=== PATIENT | male | born 1950 | race Caucasian/White ===

== ENCOUNTER → 2017-10-07 | Outpatient (CLI) | payer BC ==
[~2017-10-07] MED LIST: ASPI81TA28 PO; AZEL0.15 NAE; CHOL1000 PO; LEVO50TA PO; MULTTAB58 PO; PANT40TA PO; RANI150T85 PO; SIMV20TA2 PO; VGR50 PO
== END | disposition home or self-care (01) ==
LOC: C.RDSM 07:57
PROVIDERS: ATTEND Family Medicine Sports Medicine
DX: M54.5 Low back pain (principal)

== ENCOUNTER 2022-11-02 11:53 | Observation (INO) ==
[2022-11-02] MEDS ORDERED: SODIUM CHLORIDE 0.9% 500 ML IV ONE (13:11)
--- NOTE | 2022-11-02 13:15 | Emergency Department Note ---
Impression & Plan Ataxia, Balance problem ED Provider Note Name: MATTHEW GRANT Age: 72 Sex: M Arrives Via: Walk-In Informant: Patient, ED Provider: Brock Matos MD Chief Complaint: Unstable gait Impression: As per impressions above Medical Decision Making: Pleasant relatively healthy 72-year-old gentleman who does have a history of hypertension, dyslipidemia hypothyroidism and GERD arrives for evaluation of inability to walk in a straight line which has been coming and going throughout the last day. No active symptoms on evaluation with NIH of 0. No indication for acute stroke alert nor would he be candidate for TNKase. Patient with no posterior stroke findings on initial evaluation. A CT of the head and neck with angio reveals no acute findings. Laboratory work-up is benign. He is mildly hypertensive on arrival. In this setting I am somewhat concerned that he may have had a posterior stroke and should have further work-up as an inpatient. He does not have any true vertiginous symptoms and is not having spinning. His exam reveals no evidence of of middle ear effusion though does have a moderate cerumen impaction of the right ear. Hospitalist was consulted for further management Prior Medical Record and Triage/Nursing Notes reviewed by Me External chart reviewed by me Differentials:Stroke, vertigo, effusion, intracranial mass, dissection, electrolyte imbalance, dehydration, infection amongst many other pathologies considered Vital Signs: reviewed and remarkable for hypertension Labs:Reviewed and remarkable for no significant abnormalities Imaging:CT of the head without contrast as per my informal interpretation no evidence of intracranial hemorrhage, mass effect or other concerning findings. CT angio of the head and neck as per radiologist no acute findings. EKG:As per my interpretation. Indication strokelike symptoms. Sinus bradycardia 59 bpm and a QTc of 407. There is no previous EKG for comparison. There is no ectopy nor ischemia Cardiac/Tele Monitoring: Cardiac Monitoring: An Order was placed for continuous cardiac monitoring. The monitor shows a rate of 60 with a normal sinus rhythm. Consults:Hospitalist Plan: Disposition:Hospitalization. Condition: Good History of Present Illness:72-year-old gentleman with a history of hypertension, dyslipidemia, hypothyroid, GERD arrives for evaluation of am bulatory dysfunction. Patient notes he was on his 3 mile walk which he typically takes each morning when he felt like he was kept veering towards the right. This eventually went away but then on getting home it happened again. Symptoms once again resolved. At that time he denies any specific weakness in his arms or legs visual changes spinning, headaches, neck pain, lightheadedness, palpitation, nausea, vomiting, paresthesias or any other concerning signs or symptoms. He just states he could not walk correctly. Since then he has been feeling fine. He has had no previous history of stroke or TIA. He takes an aspirin 81 mg every other day. No history of cardiac disease. Denies any falls or traumas. Patient denies any recent car accidents. He has been feeling well the last few weeks. The only thing he notes that is out of the ordinary as he was pretty stressed out last week due to trying to put in laminate howard. Past History:hypertension, dyslipidemia, hypothyroid, GERD Home Medications:See Below Allergies:Percocet Vitals:Blood Pressure: 190/91, Pulse 91, RR 18, T 36.7C, O2 98% on RA Physical Exam: GENERAL: Patient is well appearing and in no acute distress. EYES: No scleral icterus, unremarkable pupils. RESPIRATORY: No dyspnea. Clear to auscultation and equal bilaterally. No wheeze, no rhonchi. CARDIOVASCULAR: Regular rate and rhythm.No murmurs, rubs, gallops appreciated. EXTREMITIES: Normal motion all extremities, no cyanosis, no edema. NEUROLOGIC: Alert and oriented, no acute motor or sensory deficits, no focal wea kness, cranial nerves grossly intact. SKIN: No rash, no jaundice, no diaphoresis. PSYCH: Appropriate GCS: 15 ED Course: Times/Reassessments: Patient stable throughout no recurrence of symptoms he is agreeable to hospitalization for further work-up and evaluation Brock Matos MD Past Med/Surg History Medical History Anterior epistaxis GERD (gastroesophageal reflux disease) Hyperlipidemia Surgical History History of tonsillectomy and adenoidectomy Family History Other Family history non-contributory Social History Smoking Status: Never smoker Second Hand Exposure: No; Do You Dip or Chew Tobacco: No; Tobacco Cessation Education Requested by Patient: No Hx Alcohol Use: No Hx Substance Use: No Preferred Language: Nepali Communication Ability: Effective 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 Beliefs That Will Affect Care: None marital status: Current Living Situation: Spouse current occupational status: retired Other Information That Helps Us Care for You: No Feels Safe at Home: Yes Safety Concerns: Feels Safe At This Time Assistive Devices: None Allergies Allergies Allergy/AdvReac Type Severity Reaction Status Date / Time acetaminophen [From Percocet] AdvReac Severe Verified 11/02/22 15:42 nausea/possible vomiting oxycodone [From Percocet] AdvReac Severe Verified 11/02/22 15:42 nausea/possible vomiting Home Meds Home Medications Medication Instructions Recorded Confirmed atorvastatin 20 mg tablet 20 mg PO HS 09/15/18 11/02/22 cyanocobalamin (vitamin B-12) 0 mcg PO QAM 09/15/18 11/02/22 1,000 mcg tablet (Vitamin B-12) latanoprost 0.005 % eye drops 1 drp OPB HS 09/15/18 11/02/22 levothyroxine 75 mcg tablet 75 mcg PO QAM 09/15/18 11/02/22 acetaminophen 500 mg tablet 1,000 mg PO Q6H PRN Pain 08/31/21 11/02/22 (Tylenol Extra Strength) ibuprofen 200 mg tablet 400 mg PO Q6H PRN Pain 08/31/21 11/02/22 [place] Saline Nasal Gel 1 applic intranasal DAILY 11/02/22 11/02/22 Previous Rx's Medication Instructions Recorded omeprazole 20 mg capsule,delayed 20 mg PO BID #60 caps 08/08/21 release azelastine 137 mcg (0.1 %) nasal 1 spray intranasal BID PRN nasal 08/24/22 spray aerosol drainage /congestion #30 mL aspirin 81 mg tablet,delayed 81 mg PO DAILY #30 tabs 11/03/22 release atorvastatin 40 mg tablet 80 mg PO HS 30 days #60 tabs 11/03/22 Results & Data (ED) Vital Signs Vital Signs - 24 hr 11/02/22 11:58 Temperature 36.7 C Temperature Source Temporal Artery Scan Pulse Rate 91 H Respiratory Rate 18 Blood Pressure 190/91 H Blood Pressure Mean 124 Pulse Oximetry 98 Oxygen Delivery Method Room Air Sepsis Recent Fever Within 48 Hours No Sepsis New/Unexplained Change in Mental Status No Sepsis Action Taken by Nursing No Action Required Laboratory Data 11/03/22 05:53 11/03/22 05:53 Lab Results 11/02/22 11/02/22 11/02/22 Range/Units 13:01 13:01 13:01 WBC 7.09 (4.8-10.8) K/ul RBC 5.47 (4.70-6.10) M/uL Hgb 17.6 (14.0-18.0) g/dl POC Hgb (14.0-18.0) g/dl Hct 50.4 (42.0-52.0) % POC Hct (42-52) % MCV 92.1 (80.0-100.0) fL MCH 32.2 (25.0-34.0) pg MCHC 34.9 (32.0-36.0) g/dL RDW Std Deviation 44.7 (36.4-46.3) fL RDW Coeff of Nevaeh 13.1 (11.5-14.5) % Plt Count 219 (130-400) K/uL MPV 11.3 (9.4-12.4) fL Immature Gran % (Auto) 0.3 % Neut % (Auto) 72.1 % Lymph % (Auto) 18.5 % [place] % (Auto) 6.9 % Eos % (Auto) 1.6 % Baso % (Auto) 0.6 % Neut # (Auto) 5.12 (1.40-6.50) K/uL Lymph # (Auto) 1.31 (1.2-3.4) K/uL [place] # (Auto) 0.49 (0.11-0.59) K/uL Eos # (Auto) 0.11 (0-0.50) K/uL Baso # (Auto) 0.04 (0-0.2) K/uL Immature Gran # (Auto) 0.02 (0.01-0.20) K/uL POC Sodium (135-144) mmol/L Sodium 140 (136-145) mmol/L POC Potassium (3.3-5.0) mmol/L Potassium 4.1 (3.5-5.1) mmol/L POC Chloride (101-112) mmol/L Chloride 106 (98-107) mmol/L Carbon Dioxide 27 (21-32) mmol/L POC Total CO2 (24-31) mmol/L Anion Gap 7 (3-11) POC Anion Gap (16-25) mmol/L POC BUN (7-18) mg/dl BUN 15 (6-23) mg/dl Creatinine 1.17 (0.6-1.4) mg/dl POC Creatinine (0.6-1.3) mg/dl Est Cr Clr Drug Dosing 60.8 ml/min Est GFR ( Amer) 71.8 ml/min Est GFR (Non-Af Amer) 61.9 ml/min BUN/Creatinine Ratio 12.8 (10-20) Glucose 92 (70-99(Fasting)) mg/dl POC Glucose (other) (70-99) mg/dl Calcium 9.4 (8.6-10.3) mg/dl POC Ioniz Calcium Santhosh (1.12-1.32) mmol/l Magnesium 2.0 (1.7-2.4) mg/dl Total Bilirubin 1.1 H (0.2-1.0) mg/dl Direct Bilirubin 0.2 (0-0.2) mg/dl AST 23 (13-39) U/L ALT 26 (7-52) U/L Alkaline Phosphatase 78 (34-104) U/L Troponin I High Sens 4.1 (0-20) pg/ml Total Protein 8.2 (6.0-8.3) gm/dl Albumin 4.8 (3.4-5.0) gm/dl TSH 2.831 (0.300-4.500) uIu/ml Urine Color Urine Appearance (Clear) Urine pH (4.5-7.5) Ur Specific Jackson (1.000-1.030) Urine Protein (Negative) Urine Glucose (UA) (Negative) Urine Ketones (Negative) Urine Blood (Negative) Urine Nitrite (Negative) Urine Bilirubin (Negative) Urine Urobilinogen (Negative) Ur Leukocyte Esterase (Negative) Urine WBC (Auto) (0-5) /hpf Urine RBC (Auto) (0-4) /hpf U Hyaline Cast (Auto) (0-5) /lpf U Epithel Cells (Auto) (0-5) /lpf Urine Bacteria (Auto) (Negative) SARS-CoV-2, RNA, NAAT (NEGATIVE) 11/02/22 11/02/22 11/02/22 Range/Units 13:38 13:42 14:18 WBC (4.8-10.8) K/ul RBC (4.70-6.10) M/uL Hgb (14.0-18.0) g/dl POC Hgb 17.3 (14.0-18.0) g/dl Hct (42.0-52.0) % POC Hct 51 (42-52) % MCV (80.0-100.0) fL MCH (25.0-34.0) pg MCHC (32.0-36.0) g/dL RDW Std Deviation (36.4-46.3) fL RDW Coeff of Nevaeh (11.5-14.5) % Plt Count (130-400) K/uL MPV (9.4-12.4) fL Immature Gran % (Auto) % Neut % (Auto) % Lymph % (Auto) % [place] % (Auto) % Eos % (Auto) % Baso % (Auto) % Neut # (Auto) (1.40-6.50) K/uL Lymph # (Auto) (1.2-3.4) K/uL [place] # (Auto) (0.11-0.59) K/uL Eos # (Auto) (0-0.50) K/uL Baso # (Auto) (0-0.2) K/uL Immature Gran # (Auto) (0.01-0.20) K/uL POC Sodium 142 (135-144) mmol/L Sodium (136-145) mmol/L POC Potassium 4.0 (3.3-5.0) mmol/L Potassium (3.5-5.1) mmol/L POC Chloride 105 (101-112) mmol/L Chloride (98-107) mmol/L Carbon Dioxide (21-32) mmol/L POC Total CO2 26 (24-31) mmol/L Anion Gap (3-11) POC Anion Gap 16.0 (16-25) mmol/L POC BUN 16 (7-18) mg/dl BUN (6-23) mg/dl Creatinine (0.6-1.4) mg/dl POC Creatinine 1.2 (0.6-1.3) mg/dl Est Cr Clr Drug Dosing ml/min Est GFR ( Amer) ml/min Est GFR (Non-Af Amer) ml/min BUN/Creatinine Ratio (10-20) Glucose (70-99(Fasting)) mg/dl POC Glucose (other) 93 (70-99) mg/dl Calcium (8.6-10.3) mg/dl POC Ioniz Calcium Santhosh 1.08 L (1.12-1.32) mmol/l Magnesium (1.7-2.4) mg/dl Total Bilirubin (0.2-1.0) mg/dl Direct Bilirubin (0-0.2) mg/dl AST (13-39) U/L ALT (7-52) U/L Alkaline Phosphatase (34-104) U/L Troponin I High Sens (0-20) pg/ml Total Protein (6.0-8.3) gm/dl Albumin (3.4-5.0) gm/dl TSH (0.300-4.500) uIu/ml Urine Color Yellow Urine Appearance Clear (Clear) Urine pH 6.5 (4.5-7.5) Ur Specific Jackson 1.004 (1.000-1.030) Urine Protein Negative (Negative) Urine Glucose (UA) Negative (Negative) Urine Ketones Negative (Negative) Urine Blood Trace H (Negative) Urine Nitrite Negative (Negative) Urine Bilirubin Negative (Negative) Urine Urobilinogen Negative (Negative) Ur Leukocyte Esterase Negative (Negative) Urine WBC (Auto) 0 (0-5) /hpf Urine RBC (Auto) 0-4 (0-4) /hpf U Hyaline Cast (Auto) 0 (0-5) /lpf U Epithel Cells (Auto) 0-5 (0-5) /lpf Urine Bacteria (Auto) Negative (Negative) SARS-CoV-2, RNA, NAAT NEGATIVE (NEGATIVE) Administered Medications Aspirin (Aspirin 81 Mg Ectab) 81 mg PO DAILY AYAKA Stop: 12/03/22 08:59 Last Admin: 11/03/22 07:47 Dose: 81 mg Documented By: KS Atorvastatin Calcium (Atorvastatin 40 Mg Tab) 80 mg PO HS AYAKA Stop: 12/02/22 20:59 Last Admin: 11/02/22 20:05 Dose: 80 mg Documented By: LL Levothyroxine Sodium (Levothyroxine Sodium 75 Mcg Tablet) 75 mcg PO DAILYBB AYAKA Stop: 12/03/22 06:29 Last Admin: 11/03/22 05:27 Dose: 75 mcg Documented By: ADY Lorazepam (Lorazepam 2 Mg/1 Ml Vial) 1 mg IV Q4H PRN PRN Reason: claustrophobia Stop: 12/02/22 16:00 Last Admin: 11/02/22 17:01 Dose: 1 mg Documented By: [id number] Pantoprazole Sodium (Pantoprazole 40 Mg Tab) 40 mg PO BID AYAKA Stop: 12/02/22 20:59 Last Admin: 11/03/22 07:47 Dose: 40 mg Documented By: Admin: 11/02/22 20:05 Dose: 40 mg Documented By: ADY Discontinued Medications Aspirin (Aspirin Chew 324 Mg) 324 mg PO NOW STA Stop: 11/02/22 16:11 Last Admin: 11/02/22 16:30 Dose: 324 mg Documented By: [id number] Sodium Chloride (Nss) 500 mls @ 999 mls/hr IV .Q31M ONE Stop: 11/02/22 13:41 Last Infusion: 11/02/22 16:35 Dose: 0 mls/hr Documented By: [id number] Admin: 11/02/22 14:43 Dose: 999 mls/hr Documented By: [id number] Ioversol (Optiray 320 500ml) 111 ml IV ONCE ONE Stop: 11/02/22 14:15 Last Admin: 11/02/22 14:15 Dose: 111 ml Documented By: [email or web address] Discharge Plan Visit Data Chief Complaint: Vertigo Stated Complaint: BALANCE IS OFF ED Provider: Brock Matos Discharge Problem: Ataxia, Balance problem Patient Disposition: Admitted As Inpatient Condition: Good Discharge Instructions Interventions: ED Discharge Assessment Last Done: 11/02/22 17:05
[2022-11-02 13:49] LABS: iSTAT Creatinine 1.2 mg/dl (0.6-1.3); iSTAT Hemoglobin 17.3 g/dl (14.0-18.0); iSTAT Ionized Calcium 1.08 mmol/l (1.12-1.32)
[2022-11-02 13:55] LABS: Basophils # (auto) 0.04 K/uL (0-0.2); Basophils % (auto) 0.6 %; Eosinophils # (auto) 0.11 K/uL (0-0.50); Eosinophils % (auto) 1.6 %; Hematocrit (blood only) 50.4 % (42.0-52.0); Hemoglobin 17.6 g/dl (14.0-18.0); Immature Granulocytes # (auto) 0.02 K/uL (0.01-0.20); Immature Granulocytes % (auto) 0.3 %; Lymphocytes # (auto) 1.31 K/uL (1.2-3.4); Lymphocytes % (auto) 18.5 %; Mean Corpuscular Hemoglobin 32.2 pg (25.0-34.0); Mean Corpuscular Hgb Conc 34.9 g/dL (32.0-36.0); Mean Corpuscular Volume 92.1 fL (80.0-100.0); Mean Platelet Volume 11.3 fL (9.4-12.4); Monocytes # (auto) 0.49 K/uL (0.11-0.59); Monocytes % (auto) 6.9 %; Neutrophils # (auto) 5.12 K/uL (1.40-6.50); Neutrophils % (auto) 72.1 %; Platelet Count 219 K/uL (130-400); RDW Coefficient of Variation 13.1 % (11.5-14.5); RDW Standard Deviation 44.7 fL (36.4-46.3); Red Blood Count 5.47 M/uL (4.70-6.10); White Blood Count 7.09 K/ul (4.8-10.8)
[2022-11-02 14:07] LABS: Albumin Level 4.8 gm/dl (3.4-5.0); BUN Creatinine Ratio 12.8 (10-20); Bilirubin Direct 0.2 mg/dl (0-0.2); Bilirubin,Total 1.1 mg/dl (0.2-1.0); Calcium 9.4 mg/dl (8.6-10.3); Creatinine Clr Calc Pharmacy 60.8 ml/min; Est GFR (African American) 71.8 ml/min; Est GFR (Non-African American) 61.9 ml/min; Potassium 4.1 mmol/L (3.5-5.1); Total Protein 8.2 gm/dl (6.0-8.3)
[2022-11-02 14:13] LABS: Troponin I High Sensitivity 4.1 pg/ml (0-20)
[2022-11-02] MEDS ORDERED: OPTIRAY 320 500ml IV ONE (14:14)
--- NOTE | 2022-11-02 15:07 | CT Scan Report ---
CT angio head wo/w CLINICAL HISTORY: Stroke. COMPARISON STUDY: MRI of the brain September 19, 2008. TECHNIQUE: Unenhanced and arterial phase imaging of the head was performed. Intravenous injection of 111 cc of Optiray 320 IV was uneventful. Sagittal and coronal reconstructions were viewed as well as maximal intensity projections on an independent 3-D workstation. Automated exposure control was utili [employer]kicker for the study. A dose lowering technique was utilized adhering to the principles of ALARA. FINDINGS: No acute intracranial hemorrhage, midline shift or mass effect is present. Ventricular syst em is normal. Basal cisterns are patent. There are no extra axial collections. White matter hypodensi ties suggest small vessel disease. There are no findings to suggest acute dural sinus stenosis or acu te territorial infarct. There are no significant calvarial abnormalities. The bilateral M1, M2, A1 an d A2 segments are patent. There is no intracranial aneurysm. There is no central vessel occlusion. 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 Posterior circulation is intact. IMPRESSION: 1. No acute intracranial findings. 2. No central vessel occlusion. No intracranial aneurysm. ACT 112: Negative or not required by law. Electronically signed by: Angelo Duran M.D. 11/02/2022 3:06 PM
--- NOTE | 2022-11-02 15:15 | CT Scan Report ---
CT ANGIOGRAPHY OF THE NECK WITH CONTRAST CLINICAL HISTORY: stroke work-up COMPARISON STUDY: No previous studies for comparison. Technique: CT angiography of the carotid and vertebral arteries was obtained using Optiray and 3D rec onstruction on an independent workstation. NASCET criteria was utilized. Automated exposure control was utilized for the study. A dose lowering technique was utilized adhering to the principles of ALA RA. CT DOSE: 1059.72 mGy.cm Findings: There is no cervical lymphadenopathy. Multilevel degenerative changes within the cervical s pine are present. The bilateral common carotid, cervical internal carotid and vertebral arteries are patent. There is mild plaque within the proximal bilateral internal carotid arteries without stenosis . Moderate to severe extrinsic narrowing of the right vertebral artery at the C5-C6 level is due to o steophytes. No stenosis within the left vertebral artery is present. There are no IMPRESSION: 1. Mild plaque within the proximal bilateral internal carotid arteries without associated stenosis. 2. Moderate to severe extrinsic narrowing of the right vertebral artery at the C5-C6 level due to ost eophytes. 3. No dissection or aneurysm within the major vessels of the neck. ACT 112: Negative or not required by law. Electronically signed by: Angelo Duran M.D. 11/02/2022 3:14 PM
[2022-11-02 15:31] LABS: Appearance Urine Clear (Clear); Bacteria Urine Automated Negative (Negative); Bilirubin Urine Negative (Negative); Blood Urine Trace (Negative); Cast Urine Automated 0 /lpf (0-5); Color Urine Yellow; Epithelial Cell Urine Auto 0-5 /lpf (0-5); Glucose Urine UA Negative (Negative); Ketones Urine Negative (Negative); Leukocyte Esterase Urine Negative (Negative); Nitrite Urine Negative (Negative); Protein Urine Negative (Negative); RBC Urine Automated 0-4 /hpf (0-4); Specific Gravity Urine 1.004 (1.000-1.030); Urobilinogen Urine Negative (Negative); WBC Urine Automated 0 /hpf (0-5); pH Urine 6.5 (4.5-7.5)
--- NOTE | 2022-11-02 15:40 | History & Physical Report ---
Date of Service November 02, 2022 Assessment & Plan (1) Balance problem: Plan: -Admit to med/tele -The patient is currently afebrile, hemodynamically stable, and stable on RA -Experienced the sensation of being off balance this am while walking, his is currently asymptomatic at the time of the exam -CT of the head/neck revealed "Mild plaque within the proximal bilateral internal carotid arteries without associated stenosis. Moderate to severe extrinsic narrowing of the right vertebral artery at the C5-C6 level due to osteophytes. CTA of the head was negative. -Will obtain MRI of the brain WO con and TTE for further stroke workup >PRN ativan ordered prior to MRI for his claustrophobia -Typically takes 81 mg Aspirin every other day, no previous bleeding issues, will load him with 324 mg PO aspirin now then continue with 81 mg daily -Will increase his dose of atorvastatin from 20 mg HS to 80 mg Hs -Fall precautions and PT/OT consults ordered -Q4H neuro checks -FU with MRI of the brain and TTE tomorrow -Will wait to speak with vascular surgery until MRI of the brain is resulted as his significant stenosis is due to osteophytes -BL SCD's and aspirin for DVT PPX -Monitor on tele -AM CBC, BMP (2) Vertebral artery narrowing: Plan: -See balance problem (3) GERD (gastroesophageal reflux disease): Plan: -Continue omeprazole (4) Hypothyroidism: Plan: -Will follow up with TSH -Continue levothyroxine Plan The patient was discussed with Dr. Montez at the time of the admission History of Present Illness Chief Complaint: Balance issues Primary Care Provider: Jak Braden MD Main is a 72 year old male with a PMH significant for GERD, hyperlipidemia, hypothyroidism who presented to the [facility] ED on 11/02/22 due to balance issues. In the ED the patient was found to be afebrile, hypertensive at 190/91, and stable on RA. CBC was WNL, CMP revealed a total bili of 1.1 with direct bibl WNL, otherwise LFT's WNL, initial high sen trop WNL, TSH WNL, clear UA, and covid negative. CTA of the head was read as "1. No acute intracranial findings. 2. No central vessel occlusion. No intracranial aneurysm.". CTA of the neck was read as "1. Mild plaque within the proximal bilateral internal carotid arteries without associated stenosis. 2. Moderate to severe extrinsic narrowing of the right vertebral artery at the C5-C6 level due to osteophytes. 3. No dissection or aneurysm within the major vessels of the neck. Addendum: The last sentence of the findings should read: There are no aneurysms within the neck.". Prior to admission the patient was given a 500 mL NSS bolus. At the time of the exam the patient was walking back to the bathroom without issue, with his sitting bedside. He states that he had been in his normal state of health when he woke this am around 0530. He walks approximately 3 miles daily and normally has no issues while walking. While walking this am around 0700 he started to noticed that he was a little off balance, not feeling as steady on his feet. He also states that he felt a little "off" in his head at that time. He denies any recent fevers, chills, headache, changes in vision, hearing, taste, smell, ear fullness, unilateral weakness, chest pain, SOB, abd pain, nausea, vomiting, diarrhea, dysuria, hematuria, melena, LE swelling and recent trauma. Walking back from the bathroom he had no sensation of feeling off balance and currently feels well at rest. He has no contraindications to an MRI of the brain but does get claustrophobic. He currently takes a baby aspirin every other day as ordered by his PCP. He denies a previous history of major or recent bleeding. He is a full code and wishes for his to make medical decisions for him if he could not make them himself. Please refer to Dr. Montez's attestation for any changes to the treatment plan Allergies Allergy/AdvReac Type Severity Reaction Status Date / Time acetaminophen [From Percocet] AdvReac Severe Verified 11/02/22 15:42 nausea/possible vomiting oxycodone [From Percocet] AdvReac Severe Verified 11/02/22 15:42 nausea/possible vomiting Home Medications Medication Instructions Recorded Confirmed Type atorvastatin 20 mg tablet 20 mg PO HS 09/15/18 11/02/22 History cyanocobalamin (vitamin B-12) 0 mcg PO QAM 09/15/18 11/02/22 History 1,000 mcg tablet (Vitamin B-12) latanoprost 0.005 % eye drops 1 drp OPB HS 09/15/18 11/02/22 History levothyroxine 75 mcg tablet 75 mcg PO QAM 09/15/18 11/02/22 History omeprazole 20 mg capsule,delayed 20 mg PO BID #60 caps 08/08/21 11/02/22 Rx release acetaminophen 500 mg tablet 1,000 mg PO Q6H PRN Pain 08/31/21 11/02/22 History (Tylenol Extra Strength) ibuprofen 200 mg tablet 400 mg PO Q6H PRN Pain 08/31/21 11/02/22 History azelastine 137 mcg (0.1 %) nasal 1 spray intranasal BID PRN nasal 08/24/22 11/02/22 Rx spray aerosol drainage /congestion #30 mL [place] Saline Nasal Gel 1 applic intranasal DAILY 11/02/22 11/02/22 History Past Med/Surg History Medical History Anterior epistaxis GERD (gastroesophageal reflux disease) Hyperlipidemia Surgical History History of tonsillectomy and adenoidectomy Family History Other Family history non-contributory Social History Smoking Status: Never smoker Second Hand Exposure: No; Do You Dip or Chew Tobacco: No; Tobacco Cessation Education Requested by Patient: No Hx Alcohol Use: No Hx Substance Use: No Preferred Language: Danish Communication Ability: Effective Parish Worker Required: No Beliefs That Will Affect Care: None marital status: Current Living Situation: Spouse current occupational status: retired Other Information That Helps Us Care for You: No Feels Safe at Home: Yes Safety Concerns: Feels Safe At This Time Assistive Devices: Glasses Review of Systems Review of Systems: Denies current fever, chills, headache, changes in vision, hearing, taste, and smell, chest pain, SOB, cough, abdominal pain, nausea, vomiting, diarrhea, hematemesis, melena, dysuria, hematuria, and recent falls. All systems have been reviewed and are otherwise negative. Physical Exam Physical Exam: Physical Exam: General: In no acute distress, stated age, well-nourished, good hygiene HEENT: Normocephalic, atraumatic, no scleral icterus, pupils around round, symmetrical, and reactive to light, moist mucus membranes, trachea midline, no thyromegaly Chest/Pulm: No respiratory distress, symmetrical chest expansion, clear breath sounds throughout Cardiac: RRR, no murmurs noted Abdomen: Negative for ascites and bruising, normoactive bowel sounds, soft, non-tender to palpation throughout Musculoskeletal: Symmetrical and without signs of acute trauma, upper and lower extremities with full ROM, no atrophy, spasticity, or flaccidity Extremities: Radial, dorsalis pedis, and posterior tibial pulses are intact and symmetrical, no edema noted in the BL LE's Skin: Warm, dry, no rashes , lesions, or scars noted Neuro: Alert and oriented to person, place, month, year, and president, no focal defects, CN II-XII tested and intact, negative BL cerebellar testing, no tremors noted Psych: No acute distress, calm and cooperative during the exam Results & Data Results & Data Vital Signs (Past 12 Hours) Vital Signs Temp Pulse Resp BP Pulse Ox O2 Del Method 11/02/22 15:24 62 11/02/22 11:58 36.7 C 91 H 18 190/91 H 98 Room Air Laboratory Results Abnormal lab results 11/02/22 11/02/22 11/02/22 Range/Units 13:01 13:38 14:18 POC Ioniz Calcium Santhosh 1.08 L (1.12-1.32) mmol/l Total Bilirubin 1.1 H (0.2-1.0) mg/dl Urine Blood Trace H (Negative) Diagnostic Findings Head CTA 11/02/22 13:01 CT angio head wo/w CLINICAL HISTORY: Stroke. COMPARISON STUDY: MRI of the brain September 19, 2008. TECHNIQUE: Unenhanced and arterial phase imaging of the head was performed. Intravenous injection of 111 cc of Optiray 320 IV was uneventful. Sagittal and coronal reconstructions were viewed as well as maximal intensity projections on an independent 3-D workstation. Automated exposure control was utilized for the study. A dose lowering technique was utilized adhering to the principles of ALARA. FINDINGS: No acute intracranial hemorrhage, midline shift or mass effect is present. Ventricular system is normal. Basal cisterns are patent. There are no extra axial collections. White matter hypodensities suggest small vessel disease. There are no findings to suggest acute dural sinus stenosis or acute territorial infarct. There are no significant calvarial abnormalities. The bilateral M1, M2, A1 and A2 segments are patent. There is no intracranial aneurysm. There is no central vessel occlusion. 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 Posterior circulation is intact. IMPRESSION: 1. No acute intracranial findings. 2. No central vessel occlusion. No intracranial aneurysm. ACT 112: Negative or not required by law. Electronically signed by: Angelo Duran M.D. 11/02/2022 3:06 PM Neck CTA 11/02/22 13:01 CT ANGIOGRAPHY OF THE NECK WITH CONTRAST CLINICAL HISTORY: stroke work-up COMPARISON STUDY: No previous studies for comparison. Technique: CT angiography of the carotid and vertebral arteries was obtained using Optiray and 3D reconstruction on an independent workstation. NASCET criteria was utilized. Automated exposure control was utilized for the study. A dose lowering technique was utilized adhering to the principles of ALARA. CT DOSE: 1059.72 mGy.cm Findings: There is no cervical lymphadenopathy. Multilevel degenerative changes within the cervical spine are present. The bilateral common carotid, cervical internal carotid and vertebral arteries are patent. There is mild plaque within the proximal bilateral internal carotid arteries without stenosis. Moderate to severe extrinsic narrowing of the right vertebral artery at the C5-C6 level is due to osteophytes. No stenosis within the left vertebral artery is present. There are no IMPRESSION: 1. Mild plaque within the proximal bilateral internal carotid arteries without associated stenosis. 2. Moderate to severe extrinsic narrowing of the right vertebral artery at the C5-C6 level due to osteophytes. 3. No dissection or aneurysm within the major vessels of the neck. ACT 112: Negative or not required by law. Electronically signed by: Angelo Duran M.D. 11/02/2022 3:14 PM ECG Additional Comments: Poor data quality, interpretation may be adversely affected Sinus bradycardia Minimal voltage criteria for LVH, may be normal variant Borderline ECG No previous ECGs available Code Status & VTE Plan Code Status Full code VTE Prophylaxis Plan VTE Prophylaxis will be ordered: Yes Supervising Physician Co-Signing Physician Notes Patient seen and examined, chart reviewed, case discussed with Francisco Eid PA-C and I agree with the assessment and plan as above except as otherwise noted Labs and images reviewed Main is a 72-year-old male on aspirin every other day for primary prevention of stroke who presents with an episode of dizziness concerning for posterior stroke. His symptoms are improved although he is left with a slight off-balance feeling at bedside, and he has not had vertigo or room spinning any point. No loss of consciousness. No upper or lower extremity weakness. Patient does have moderate to severe narrowing of the right vertebral artery at C5-C6 due to osteophytes, CT of the head was otherwise negative. MRI of the brain does not show any strokes but does show microvascular change. Continued on aspirin daily, TTE pending. Distal extremity strength grossly intact, breathing is unlabored at bedside. Agree with assessment and management above PG Care Time/CCT Total # of Minutes Spent Total Time Spent with Patient: Total time spent is greater than 50% in coordination of care (as documented) at patient's floor/unit and/or counseling patient: Coding [place] [address] INT INP/OBS CARE 2/55MIN Patient Type Established Medical Decision Making Moderate Complexity Diagnoses Balance problem R26.89 Vertebral artery narrowing I65.09 GERD (gastroesophageal reflux disease) K21.9 Esophagitis presence: esophagitis presence not specified Hypothyroidism E03.9 (3) GERD (gastroesophageal reflux disease) Esophagitis presence: esophagitis presence not specified Qualified Code(s): K21.9 - Gastro-esophageal reflux disease without esophagitis
[2022-11-02] MEDS ORDERED: PHARMACIST DISCHARGE MED REC CONSULT PRN (15:41)
[2022-11-02] MEDS ORDERED: LORazepam 2 MG/1 ML VIAL IV PRN (16:01)
--- NOTE | 2022-11-02 16:02 | Electrocardiogram Report ---
Test Reason : Blood Pressure : / mmHG Vent. Rate : 059 BPM Atrial Rate : 059 BPM P-R Int : 184 ms QRS Dur : 076 ms QT Int : 412 ms P-R-T Axes : 063 -12 -03 degrees QTc Int : 407 ms Poor data quality, interpretation may be adversely affected Sinus bradycardia Minimal voltage criteria for LVH, may be normal variant Borderline ECG No previous ECGs available Confirmed by Raffi Jay ([id number]) on 11/02/2022 4:02:26 PM Referred By: REFERRED SELF Confirmed By:Raffi Jay
[2022-11-02] MEDS ORDERED: ASPIRIN/ALUM/MAGNES/CAL CARB 325 MG TAB PO STA (16:06)
[2022-11-02] MEDS ORDERED: ASPIRIN CHEW 324 MG PO STA (16:10)
--- NOTE | 2022-11-02 18:10 | Magnetic Resonance Report ---
MR brain wo con HISTORY: 72 years-old Male stroke workup acute strokelike symptoms COMPARISON: CTA head and neck of same day, brain MRI 09/19/2008 TECHNIQUE: Multiplanar multisequence MRI of the brain was obtained without the use of IV contrast. FINDINGS: Vendor Management Consultant localizer images demonstrate no gross extracranial abnormality. No restricted diffusion to sugg est acute or subacute infarct. Midline structures appear unremarkable. Partially empty sella. Degener ative changes of the cervical spine. No acute intracranial hemorrhage, midline shift, extra-axial col lection, hydrocephalus or intracranial mass. Involutional changes with mild to moderate T2/FLAIR hype rintense foci throughout the white matter. No pathologic blooming artifact on the T2 star series. Cerebral venous sinuses and major arterial flow voids appear patent. The skull, orbits and soft tissu es are unremarkable. Minimal mucosal thickening of the paranasal sinuses. Mastoid air cells are clear . IMPRESSION: 1. No acute intracranial abnormality. No acute or subacute infarct. 2. Involutional changes with chronic microvascular ischemic disease. ACT 112: Negative or not required by law. The above report was generated using voice recognition software. It may contain grammatical, syntax o r spelling errors. Electronically signed by: Glenn Villa M.D. 11/02/2022 6:08 PM
[2022-11-02] MEDS: PANTOprazole 40 MG TAB PO SCH (20:05)
[2022-11-02] MEDS ORDERED: ATORVASTATIN 40 MG TAB PO SCH (21:00)
[2022-11-03] MEDS ORDERED: LEVOTHYROXINE SODIUM 75 MCG TABLET PO SCH (06:30)
[2022-11-03 06:36] LABS: Basophils # (auto) 0.05 K/uL (0-0.2); Basophils % (auto) 0.7 %; Eosinophils # (auto) 0.26 K/uL (0-0.50); Eosinophils % (auto) 3.7 %; Hematocrit (blood only) 45.4 % (42.0-52.0); Immature Granulocytes # (auto) 0.01 K/uL (0.01-0.20); Immature Granulocytes % (auto) 0.1 %; Lymphocytes # (auto) 1.51 K/uL (1.2-3.4); Lymphocytes % (auto) 21.5 %; Mean Corpuscular Hemoglobin 32.5 pg (25.0-34.0); Mean Corpuscular Hgb Conc 35.2 g/dL (32.0-36.0); Mean Corpuscular Volume 92.1 fL (80.0-100.0); Mean Platelet Volume 11.3 fL (9.4-12.4); Monocytes % (auto) 8.5 %; Neutrophils % (auto) 65.5 %; Platelet Count 192 K/uL (130-400); RDW Coefficient of Variation 13.2 % (11.5-14.5); Red Blood Count 4.93 M/uL (4.70-6.10); White Blood Count 7.03 K/ul (4.8-10.8)
[2022-11-03 07:08] LABS: Albumin Globulin Ratio 1.4 (0.9-2); Albumin Level 3.9 gm/dl (3.4-5.0); BUN Creatinine Ratio 13.8 (10-20); Bilirubin,Total 1.1 mg/dl (0.2-1.0); Calcium 8.5 mg/dl (8.6-10.3); Chol HDL Ratio 4.4 (0-5); Creatinine Clr Calc Pharmacy 61.3 ml/min; Est GFR (African American) 72.5 ml/min; Est GFR (Non-African American) 62.6 ml/min; Globulin 2.8 gm/dl (2.5-4.0); Potassium 4.1 mmol/L (3.5-5.1); Total Protein 6.7 gm/dl (6.0-8.3)
[2022-11-03 07:11] LABS: INR 1.1 (0.9-1.1); Prothrombin Time 11.6 Seconds (9.0-12.0)
--- NOTE | 2022-11-03 07:17 | Hospitalist Progress Note ---
Date of Service November 03, 2022 Assessment & Plan (1) Balance problem: Plan: Main is a 72-year-old male on aspirin every other day for primary prevention of stroke who presents with an episode of dizziness concerning for posterior stroke. His symptoms are improved although he is left with a slight off-balance feeling at bedside, and he has not had vertigo or room spinning any point. No loss of consciousness. No upper or lower extremity weakness. Patient does have moderate to severe narrowing of the right vertebral artery at C5-C6 due to osteophytes, CT of the head was otherwise negative. MRI of the brain does not show any strokes but does show microvascular change. Continued on aspirin daily, TTE pending. Distal extremity strength grossly intact, breathing is unlabored at bedside. -Admit to med/tele -The patient is currently afebrile, hemodynamically stable, and stable on RA -Experienced the sensation of being off balance this am while walking, his is currently asymptomatic at the time of the exam -CT of the head/neck revealed "Mild plaque within the proximal bilateral internal carotid arteries without associated stenosis. Moderate to severe extrinsic narrowing of the right vertebral artery at the C5-C6 level due to osteophytes. CTA of the head was negative. -Will obtain MRI of the brain WO con and TTE for further stroke workup >PRN ativan ordered prior to MRI for his claustrophobia -Typically takes 81 mg Aspirin every other day, no previous bleeding issues, will load him with 324 mg PO aspirin now then continue with 81 mg daily -Will increase his dose of atorvastatin from 20 mg HS to 80 mg Hs -Fall precautions and PT/OT consults ordered -Q4H neuro checks -FU with MRI of the brain and TTE tomorrow -Will wait to speak with vascular surgery until MRI of the brain is resulted as his significant stenosis is due to osteophytes -BL SCD's and aspirin for DVT PPX -Monitor on tele -AM CBC, BMP (2) Vertebral artery narrowing: Plan: -See balance problem (3) GERD (gastroesophageal reflux disease): Plan: -Continue omeprazole (4) Hypothyroidism: Plan: -Will follow up with TSH -Continue levothyroxine Admission and Anticipated Discharge Date Admission Date: November 02, 2022 Results & Data Results & Data Vital Signs (Past 12 Hours) Vital Signs Temp Pulse Pulse Resp BP Pulse Ox O2 Del Method 11/03/22 07:13 67 11/03/22 03:46 36.6 C 85 18 128/66 97 Room Air 11/02/22 23:21 65 11/02/22 23:19 36.7 C 65 16 128/69 96 Room Air (3) GERD (gastroesophageal reflux disease) Esophagitis presence: esophagitis presence not specified Qualified Code(s): K21.9 - Gastro-esophageal reflux disease without esophagitis
[2022-11-03] MEDS: PANTOprazole 40 MG TAB PO SCH (07:47)
[2022-11-03] MEDS ORDERED: ASPIRIN 81 MG ECTAB PO SCH (09:00)
--- NOTE | 2022-11-03 15:32 | XCELERA ---
[id number]
--- NOTE | 2022-11-03 15:58 | Discharge Summary ---
Date of Service November 03, 2022 Admission HPI Per Admitting Provider Main is a 72 year old male with a PMH significant for GERD, hyperlipidemia, hypothyroidism who presented to the [facility] ED on 11/02/22 due to balance issues. In the ED the patient was found to be afebrile, hypertensive at 190/91, and stable on RA. CBC was WNL, CMP revealed a total bili of 1.1 with direct bibl WNL, otherwise LFT's WNL, initial high sen trop WNL, TSH WNL, clear UA, and covid negative. CTA of the head was read as "1. No acute intracranial findings. 2. No central vessel occlusion. No intracranial aneurysm.". CTA of the neck was read as "1. Mild plaque within the proximal bilateral internal carotid arteries without associated stenosis. 2. Moderate to severe extrinsic narrowing of the right vertebral artery at the C5-C6 level due to osteophytes. 3. No dissection or aneurysm within the major vessels of the neck. Addendum: The last sentence of the findings should read: There are no aneurysms within the neck.". Prior to admission the patient was given a 500 mL NSS bolus. At the time of the exam the patient was walking back to the bathroom without issue, with his sitting bedside. He states that he had been in his normal state of health when he woke this am around 0530. He walks approximately 3 miles daily and normally has no issues while walking. While walking this am around 0700 he started to noticed that he was a little off balance, not feeling as steady on his feet. He also states that he felt a little "off" in his head at that time. He denies any recent fevers, chills, headache, changes in vision, hearing, taste, smell, ear fullness, unilateral weakness, chest pain, SOB, abd pain, nausea, vomiting, diarrhea, dysuria, hematuria, melena, LE swelling and recent trauma. Walking back from the bathroom he had no sensation of feeling off balance and currently feels well at rest. He has no contraindications to an MRI of the brain but does get claustrophobic. He currently takes a baby aspirin every other day as ordered by his PCP. He denies a previous history of major or recent bleeding. He is a full code and wishes for his to make medical decisions for him if he could not make them himself. Admission Exam Per Admitting Provider Physical Exam: General:In no acute distress, stated age, well-nourished, good hygiene HEENT:Normocephalic, atraumatic, no scleral icterus, pupils around round, symmetrical, and reactive to light, moist mucus membranes, trachea midline, no thyromegaly Chest/Pulm:No respiratory distress, symmetrical chest expansion, clear breath sounds throughout Cardiac:RRR, no murmurs noted Abdomen:Negative for ascites and bruising, normoactive bowel sounds, soft, non-tender to palpation throughout Musculoskeletal:Symmetrical and without signs of acute trauma, upper and lower extremities with full ROM, no atrophy, spasticity, or flaccidity Extremities:Radial, dorsalis pedis, and posterior tibial pulses are intact and symmetrical, no edema noted in the BL LE's Skin:Warm, dry, no rashes , lesions, or scars noted Neuro:Alert and oriented to person, place, month, year, and president, no focal defects, CN II-XII tested and intact, negative BL cerebellar testing, no tremors noted Psych:No acute distress, calm and cooperative during the exam Principal Diagnosis Ataxia Discharge Exam Constitutional: well-appearing, no acute distress HEENT: NCAT, no conjunctival injection CV: regular rhythm, no murmur appreciated, extremities well-perfused, no LE edema Resp: CTABL, no wheezes/rales/rhonchi appreciated, no increased work of breathing GI: soft, nondistended, nontender, BS normoactive MSK: no gross deformities appreciated Skin: warm, dry, no rash appreciated Neuro: alert, oriented, no focal neurologic deficit appreciated Discharge Data Allergies Allergy/AdvReac Type Severity Reaction Status Date / Time acetaminophen [From Percocet] AdvReac Severe Verified 11/02/22 15:42 nausea/possible vomiting oxycodone [From Percocet] AdvReac Severe Verified 11/02/22 15:42 nausea/possible vomiting Consultations 11/02/22 15:33 ED Decision to Admit Stat Procedures Performed Head CTA 11/02/22 13:01 CT angio head wo/w CLINICAL HISTORY: Stroke. COMPARISON STUDY: MRI of the brain September 19, 2008. TECHNIQUE: Unenhanced and arterial phase imaging of the head was performed. Intravenous injection of 111 cc of Optiray 320 IV was uneventful. Sagittal and coronal reconstructions were viewed as well as maximal intensity projections on an independent 3-D workstation. Automated exposure control was utilized for the study. A dose lowering technique was utilized adhering to the principles of ALARA. FINDINGS: No acute intracranial hemorrhage, midline shift or mass effect is present. Ventricular system is normal. Basal cisterns are patent. There are no extra axial collections. White matter hypodensities suggest small vessel disease. There are no findings to suggest acute dural sinus stenosis or acute territorial infarct. There are no significant calvarial abnormalities. The bilateral M1, M2, A1 and A2 segments are patent. There is no intracranial aneurysm. There is no central vessel occlusion. 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 Posterior circulation is intact. IMPRESSION: 1. No acute intracranial findings. 2. No central vessel occlusion. No intracranial aneurysm. ACT 112: Negative or not required by law. Electronically signed by: Angelo Duran M.D. 11/02/2022 3:06 PM Neck CTA 11/02/22 13:01 CT ANGIOGRAPHY OF THE NECK WITH CONTRAST CLINICAL HISTORY: stroke work-up COMPARISON STUDY: No previous studies for comparison. Technique: CT angiography of the carotid and vertebral arteries was obtained using Optiray and 3D reconstruction on an independent workstation. NASCET criteria was utilized. Automated exposure control was utilized for the study. A dose lowering technique was utilized adhering to the principles of ALARA. CT DOSE: 1059.72 mGy.cm Findings: There is no cervical lymphadenopathy. Multilevel degenerative changes within the cervical spine are present. The bilateral common carotid, cervical internal carotid and vertebral arteries are patent. There is mild plaque within the proximal bilateral internal carotid arteries without stenosis. Moderate to severe extrinsic narrowing of the right vertebral artery at the C5-C6 level is due to osteophytes. No stenosis within the left vertebral artery is present. There are no IMPRESSION: 1. Mild plaque within the proximal bilateral internal carotid arteries without associated stenosis. 2. Moderate to severe extrinsic narrowing of the right vertebral artery at the C5-C6 level due to osteophytes. 3. No dissection or aneurysm within the major vessels of the neck. ACT 112: Negative or not required by law. Electronically signed by: Angelo Duran M.D. 11/02/2022 3:14 PM Brain MRI 11/02/22 15:41 MR brain wo con HISTORY: 72 years-old Male stroke workup acute strokelike symptoms COMPARISON: CTA head and neck of same day, brain MRI 09/19/2008 TECHNIQUE: Multiplanar multisequence MRI of the brain was obtained without the use of IV contrast. FINDINGS: [employer] Techn[employer] localizer images demonstrate no gross extracranial abnormality. No restricted diffusion to suggest acute or subacute infarct. Midline structures appear unremarkable. Partially empty sella. Degenerative changes of the cervical spine. No acute intracranial hemorrhage, midline shift, extra-axial collection, hydrocephalus or intracranial mass. Involutional changes with mild to moderate T2/FLAIR hyperintense foci throughout the white matter. No pathologic blooming artifact on the T2 star series. Cerebral venous sinuses and major arterial flow voids appear patent. The skull, orbits and soft tissues are unremarkable. Minimal mucosal thickening of the paranasal sinuses. Mastoid air cells are clear. IMPRESSION: 1. No acute intracranial abnormality. No acute or subacute infarct. 2. Involutional changes with chronic microvascular ischemic disease. ACT 112: Negative or not required by law. The above report was generated using voice recognition software. It may contain grammatical, syntax or spelling errors. Electronically signed by: Glenn Villa M.D. 11/02/2022 6:08 PM Ordered Studies 11/02/22 13:01 CT angio head wo/w Stat CTA neck with con [CT angio neck with con] Stat 11/02/22 15:41 MR brain wo con Routine Labs 11/02/22 11/02/22 11/02/22 13:01 13:01 13:01 WBC 7.09 RBC 5.47 Hgb 17.6 POC Hgb Hct 50.4 POC Hct MCV 92.1 MCH 32.2 MCHC 34.9 RDW Std Deviation 44.7 RDW Coeff of Nevaeh 13.1 Plt Count 219 MPV 11.3 Immature Gran % (Auto) 0.3 Neut % (Auto) 72.1 Lymph % (Auto) 18.5 Calloway % (Auto) 6.9 Eos % (Auto) 1.6 Baso % (Auto) 0.6 Neut # (Auto) 5.12 Lymph # (Auto) 1.31 Calloway # (Auto) 0.49 Eos # (Auto) 0.11 Baso # (Auto) 0.04 Immature Gran # (Auto) 0.02 PT INR POC Sodium Sodium 140 POC Potassium Potassium 4.1 POC Chloride Chloride 106 Carbon Dioxide 27 POC Total CO2 Anion Gap 7 POC Anion Gap POC BUN BUN 15 Creatinine 1.17 POC Creatinine Est Cr Clr Drug Dosing 60.8 Est GFR ( Amer) 71.8 Est GFR (Non-Af Amer) 61.9 BUN/Creatinine Ratio 12.8 Glucose 92 POC Glucose (other) Calcium 9.4 POC Ioniz Calcium Santhosh Magnesium 2.0 Total Bilirubin 1.1 H Direct Bilirubin 0.2 AST 23 ALT 26 Alkaline Phosphatase 78 Troponin I High Sens 4.1 Total Protein 8.2 Albumin 4.8 Globulin Albumin/Globulin Ratio Triglycerides Cholesterol LDL Cholesterol, Calc VLDL Cholesterol, Calc HDL Cholesterol Cholesterol/HDL Ratio TSH 2.831 Urine Color Urine Appearance Urine pH Ur Specific [place] Urine Protein Urine Glucose (UA) Urine Ketones Urine Blood Urine Nitrite Urine Bilirubin Urine Urobilinogen Ur Leukocyte Esterase Urine WBC (Auto) Urine RBC (Auto) U Hyaline Cast (Auto) U Epithel Cells (Auto) Urine Bacteria (Auto) SARS-CoV-2, RNA, NAAT 11/02/22 11/02/22 11/02/22 13:38 13:42 14:18 WBC RBC Hgb POC Hgb 17.3 Hct POC Hct 51 MCV MCH MCHC RDW Std Deviation RDW Coeff of Nevaeh Plt Count MPV Immature Gran % (Auto) Neut % (Auto) Lymph % (Auto) Calloway % (Auto) Eos % (Auto) Baso % (Auto) Neut # (Auto) Lymph # (Auto) Calloway # (Auto) Eos # (Auto) Baso # (Auto) Immature Gran # (Auto) PT INR POC Sodium 142 Sodium POC Potassium 4.0 Potassium POC Chloride 105 Chloride Carbon Dioxide POC Total CO2 26 Anion Gap POC Anion Gap 16.0 POC BUN 16 BUN Creatinine POC Creatinine 1.2 Est Cr Clr Drug Dosing Est GFR ( Amer) Est GFR (Non-Af Amer) BUN/Creatinine Ratio Glucose POC Glucose (other) 93 Calcium POC Ioniz Calcium Santhosh 1.08 L Magnesium Total Bilirubin Direct Bilirubin AST ALT Alkaline Phosphatase Troponin I High Sens Total Protein Albumin Globulin Albumin/Globulin Ratio Triglycerides Cholesterol LDL Cholesterol, Calc VLDL Cholesterol, Calc HDL Cholesterol Cholesterol/HDL Ratio TSH Urine Color Yellow Urine Appearance Clear Urine pH 6.5 Ur Specific [place] 1.004 Urine Protein Negative Urine Glucose (UA) Negative Urine Ketones Negative Urine Blood Trace H Urine Nitrite Negative Urine Bilirubin Negative Urine Urobilinogen Negative Ur Leukocyte Esterase Negative Urine WBC (Auto) 0 Urine RBC (Auto) 0-4 U Hyaline Cast (Auto) 0 U Epithel Cells (Auto) 0-5 Urine Bacteria (Auto) Negative SARS-CoV-2, RNA, NAAT NEGATIVE 11/03/22 11/03/22 11/03/22 05:53 05:53 05:53 WBC 7.03 RBC 4.93 Hgb 16.0 POC Hgb Hct 45.4 POC Hct MCV 92.1 MCH 32.5 MCHC 35.2 RDW Std Deviation 45.0 RDW Coeff of Nevaeh 13.2 Plt Count 192 MPV 11.3 Immature Gran % (Auto) 0.1 Neut % (Auto) 65.5 Lymph % (Auto) 21.5 Calloway % (Auto) 8.5 Eos % (Auto) 3.7 Baso % (Auto) 0.7 Neut # (Auto) 4.60 Lymph # (Auto) 1.51 Calloway # (Auto) 0.60 H Eos # (Auto) 0.26 Baso # (Auto) 0.05 Immature Gran # (Auto) 0.01 PT 11.6 INR 1.1 POC Sodium Sodium 140 POC Potassium Potassium 4.1 POC Chloride Chloride 108 H Carbon Dioxide 26 POC Total CO2 Anion Gap 6 POC Anion Gap POC BUN BUN 16 Creatinine 1.16 POC Creatinine Est Cr Clr Drug Dosing 61.3 Est GFR ( Amer) 72.5 Est GFR (Non-Af Amer) 62.6 BUN/Creatinine Ratio 13.8 Glucose 90 POC Glucose (other) Calcium 8.5 L POC Ioniz Calcium Santhosh Magnesium Total Bilirubin 1.1 H Direct Bilirubin AST 17 ALT 20 Alkaline Phosphatase 65 Troponin I High Sens Total Protein 6.7 Albumin 3.9 Globulin 2.8 Albumin/Globulin Ratio 1.4 Triglycerides 123 Cholesterol 106 LDL Cholesterol, Calc 57 VLDL Cholesterol, Calc 25 HDL Cholesterol 24 Cholesterol/HDL Ratio 4.4 TSH Urine Color Urine Appearance Urine pH Ur Specific [place] Urine Protein Urine Glucose (UA) Urine Ketones Urine Blood Urine Nitrite Urine Bilirubin Urine Urobilinogen Ur Leukocyte Esterase Urine WBC (Auto) Urine RBC (Auto) U Hyaline Cast (Auto) U Epithel Cells (Auto) Urine Bacteria (Auto) SARS-CoV-2, RNA, NAAT Hospital Course (1) Ataxia: Main is a 72-year-old male who presents with an episode of dizziness concerning for posterior stroke. His symptoms improved by the time of discharge without any intervention. Has not had any vertigo or room spinning any point. No loss of consciousness. No upper or lower extremity weakness. -Experienced the sensation of being off balance this am while walking, -Hemodynamically stable -CT of the head/neck revealed Mild plaque within the proximal bilateral internal carotid arteries without associated stenosis. Moderate to severe extrinsic narrowing of the right vertebral artery at the C5-C6 level due to osteophytes. CTA of the head was negative. MRI brain did not show any signs of stroke but did show microvascular change. -TTE on 11/03 showed ejection fraction of 60 to 65%, mild concentric left ventricular hypertrophy, grade 1 diastolic dysfunction, and mild aortic regurgitation. -Stroke ruled out during this admission. Do not believe patient had a TIA at this time. Leading cause of ataxia most likely due to allergic laryngitis. -his is currently asymptomatic at the time of discharge. -Should follow-up in 1 week with PCP to discuss further treatment. (2) Vertebral artery narrowing: -See ataxia problem. (3) GERD (gastroesophageal reflux disease): -Continue omeprazole (4) Hypothyroidism: -TSH was normal. -Continue levothyroxine Total Time Total Time Spent Total Time Spent (In Minutes): 20 Discharge Plan Discharge Items Patient Disposition: Home - Self-Care Reason For Visit: BALANCE ISSUES Discharge Diagnosis: Balance issues Condition on Discharge: Good Activity: Resume your previous activity Non-emergency contact: Primary Care Provider Call non-emergency contact if: you have any medication questions and your symptoms worsen Follow-up/Referrals: Jak Braden MD [Primary Care Provider] - 11/06/22 10:45 am (This appointment will be at the [facility] office with Dr. Young. If you have any questions or need to reschedule, please call their office at [phone]. ) Diet: Regular Addtl Attending Provider Instructions: You were admitted to the hospital for balance issues. We did blood work and imaging studies to try to find out if your symptoms were due to a stroke. The results of these tests were reassuring, and we feel it is safe for you to return home. A discharge summary will be sent to your primary care physician to ensure continuity of care. Please bring this discharge summary with you to your next office appointment so that your provider can review it at that time. Follow-up appointments: Make a follow-up appointment with your PCP within the next week. It is very important that you follow up with them shortly after discharge from the hospital. Keep all your follow-up appointments as already scheduled. If you cannot make an appointment, notify your provider. Medications: Your medication list has been reviewed and reconciled upon discharge to ensure accuracy and continuity of care. An updated list of all your medications is included with your hospital discharge paperwork. Please review this list closely, and make note of any changes. * We are increasing your dose of atorvastatin (also known as Lipitor). Your previous dose was 20mg once daily. We sent a new prescription to your pharmacy for atorvastatin (Lipitor) 80mg to be taken once daily. * Please take aspirin 81mg once a day. We sent a new prescription to your pharmacy for Aspirin 81mg to be taken once daily. If you have any issues filling these prescriptions, please call [phone] and ask to leave a message for Dr. Bong Perdomo. Take your medications as instructed; do not skip a dose of your medicines. Make sure all of your doctors know every medicine you are taking (including [id number] medicines, vitamins, and supplements). Call your primary care provider before taking any new medicines (including [id number] medicines, vitamins, and supplements), because some of these may interact with your current medications, or may make your symptoms worse. Tell your primary care provider if you cannot afford your medications. CONTACT YOUR PRIMARY CARE PROVIDER if you experience any of the following: Stroke-like symptoms (sudden numbness, weakness, difficulty speaking, vision changes, dizziness) Difficulty following your treatment plan, or difficulty taking medications CALL 911 OR GO TO THE EMERGENCY DEPARTMENT if you experience any of the following: Sudden, severe abdominal pain or nausea/vomiting Severe chest pain, or chest pain that radiates (moves) to your jaw or arm Sudden, severe shortness of breath or difficulty breathing Thank you for allowing us to participate in your care. Pending Studies at Discharge: No Stand-Alone Forms: My [facility] Medications and DC Order Prescriptions: New atorvastatin 40 mg Tablet 80 mg PO HS 30 Days Qty: 60 0RF aspirin 81 mg Tablet,Delayed Release (Dr/Ec) 81 mg PO DAILY Qty: 30 0RF Continued azelastine 137 mcg (0.1 %) aerosol,spray 1 spray intranasal BID PRN (Reason: nasal drainage /congestion) Qty: 30 6RF Rx Instructions: administer into each nostril omeprazole 20 mg capsule,delayed release(DR/EC) 20 mg PO BID Qty: 60 3RF Rx Instructions: 1 capsule by mouth 30 minutes before breakfast and 30 minutes before dinner cyanocobalamin (vitamin B-12) [Vitamin B-12] 1,000 mcg Tablet 0 mcg PO QAM levothyroxine 75 mcg tablet 75 mcg PO QAM latanoprost 0.005 % drops 1 drp OPB HS [place] Saline Nasal Gel 1 applic intranasal DAILY acetaminophen [Tylenol Extra Strength] 500 mg Tablet 1,000 mg PO Q6H PRN (Reason: Pain) ibuprofen 200 mg Tablet 400 mg PO Q6H PRN (Reason: Pain) Discontinued atorvastatin 20 mg tablet 20 mg PO HS Discharge Orders: Discharge Order (Routine); Ordered 11/03/22 Ordered By: Bong Perdomo Admission Data Admit Date/Time: 11/02/22 15:41 Attending Provider: Darlyn Mills Admit Provider: Pedrito Montez Primary Care Provider: Jak Braden Other Providers: Pedrito Montez Other Interventions: Discharge Summary Assessment (RN) Last Done: 11/03/22 17:13 Supervising Physician Co-Signing Physician Notes Resident Physician Supervision Note: I independently interviewed and examined the patient and verified the herrera history and physical, reviewed labs and image studies and agree with resident findings and care plan. Resident Activity Tracking Resident Involvement: Resident Care Provided Care Provided: Adult Hospital Medicine
[2022-11-04 07:38] LABS: Estimated Average Glucose 100 mg/dl; Hemoglobin A1C 5.1 % (4.5-5.6)
== END 2022-11-03 18:26 | disposition home or self-care (01) ==
LOC: ED 11:53 → 2N 11:53 → SUATTDRO 15:41 → 2N 17:05